=== PATIENT | female | born 1940 | race American Indian/Alaskan Native ===

== ENCOUNTER 2016-10-22 11:35 | Inpatient (IN) | payer MEDICARE ==
[2016-10-22 11:35] VITALS: BMI 24.7
[2016-10-22] MEDS ORDERED: Morphine 4 MG/ML VIAL ONE (12:44)
--- NOTE | 2016-10-22 12:46 | C.PDOC ---
History Of Present Illness The patient, a 75 y/o female whose PMHx includes Parkinson's Disease, presents to the ED for evaluation of right hip and right lower back pain after she sustained a fall prior to arrival. Patient denies LOC, head injury, neck pain, upper/lower extremity numbness/weakness. Time Seen by Provider: 10/22/16 12:14 Chief Complaint (Nursing): Lower Extremity Problem/Injury History Per: Patient History/Exam Limitations: no limitations Onset/Duration Of Symptoms: Hrs Current Symptoms Are (Timing): Still Present Additional History Per: Patient - Hip Description Of Injury: Fell Past Medical History Reviewed: Historical Data, Nursing Documentation, Vital Signs Vital Signs: Last Vital Signs Temp 99.3 F 10/22/16 18:24 Pulse 140 H 10/22/16 18:24 Resp 20 10/22/16 18:24 BP 167/75 H 10/22/16 18:24 Pulse Ox 96 10/22/16 18:24 - Medical History PMH: Parkinson's Disease (beginning stage) Surgical History: No Surg Hx - [facility] Procedures DESTRUCT-KNEE LESION NEC (09/21/02) EXCIS KNEE SEMILUN CARTL (09/21/02) IMMOBILIZ/WOUND ATTN NEC (09/21/13) KNEE SYNOVECTOMY (09/21/02) MEASURE OF CARDIAC SAMPL & PRESSURE, L HEART, PERC APPROACH (09/14/15) PLAIN RADIOGRAPHY OF LEFT HEART USING LOW OSMOLAR CONTRAST (09/14/15) PLAIN RADIOGRAPHY OF MULT COR ART USING L OSM CONTRAST (09/14/15) Family History: States: Unknown Family Hx - Social History Hx Tobacco Use: No Hx Alcohol Use: No Hx Substance Use: No Review Of Systems Except As Marked, All Systems Reviewed And Found Negative. Musculoskeletal: Positive for: Back Pain (right, lower ), Other (+right hip pain ). Negative for: Neck Pain Neurological: Negative for: Weakness, Numbness, Other (no head injury, no LOC ) Physical Exam - Physical Exam Appears: Non-toxic, No Acute Distress Skin: Normal Color, Warm, Dry Head: Atraumatic, Normacephalic, No Tenderness Eye(s): bilateral: Normal Inspection, EOMI Oral Mucosa: Moist Neck: Normal ROM, Supple Chest: Symmetrical, No Deformity, No Tenderness Cardiovascular: Rhythm Regular, No Murmur Respiratory: Normal Breath Sounds, No Rales, No Rhonchi, No Wheezing Back: Other (+tenderness to right lower back on palpation ) Extremity: Tenderness (right hip ), No Calf Tenderness, Capillary Refill (less than 2 seconds), No Deformity Pulses: Left Dorsalis Pedis: Normal, Right Dorsalis Pedis: Normal Neurological/Psych: Oriented x3, Normal Speech, Normal Cognition Gait: Steady ED Course And Treatment - Laboratory Results Result Diagrams: 10/22/16 12:55 10/22/16 12:55 Lab Interpretation: Normal O2 Sat by Pulse Oximetry: 96 (on RA) Pulse Ox Interpretation: Normal - Other Rad CXR X-Ray: Interpreted by Me, Viewed By Me, Read By Radiologist Interpretation: Accession No. : [id number]. Patient Name / ID : PLACIDO BLAIR / [id number]. Exam Date : 10/22/2016 12:49:38 ( Approved ). Study Comment : Sex / Age : F / 75Y. Creator : Mayito Yu. Dictator : Mayito Yu. Silver Wrapper : Still Operator : Mayito Yu. Approver2 : Report Date : 10/22/2016 14:31:09. My Comment : . PROCEDURE: CHEST RADIOGRAPH, 1 VIEW. HISTORY: pain. COMPARISON: Comparison is made to the previous study dated 06/23/2016. FINDINGS: LUNGS: No evidence of new infiltrate or consolidation in the lungs. PLEURA: No pneumothorax or pleural fluid seen. CARDIOVASCULAR: The cardiac silhouette is enlarged. OSSEOUS STRUCTURES: No significant abnormalities. VISUALIZED UPPER ABDOMEN: Normal. OTHER FINDINGS: None. IMPRESSION: No evidence of acute pulmonary disease. Cardiomegaly. XR Lumbar Spine X-Ray: Interpreted by Me, Viewed By Me, Read By Radiologist Interpretation: Accession No. : [id number]. Patient Name / ID : PLACIDO BLAIR / [id number]. Exam Date : 10/22/2016 12:49:04 ( Approved ). Study Comment : Sex / Age : F / 75Y. Creator : Mayito Yu. Dictator : Mayito Yu. Silver Wrapper : Still Operator : Mayito Yu. Approver2 : Report Date : 10/22/2016 15:04:12. My Comment : . PROCEDURE: Radiographs of the Lumbar Spine. HISTORY: pain. Status post fall. COMPARISON: No prior. FINDINGS: BONES: Diffuse osteopenia seen. Patient status post prior internal fixation at the lower lumbar spine at L5-S1. No evidence of acute fracture. DISC SPACES: Degenerative changes and multilevel degenerative disc changes are seen. There is narrowing of the disc is space at L4-L5 and L5-S1. OTHER FINDINGS: None. IMPRESSION: No definite evidence of acute fracture. Status post internal fixation at the lower lumbar spine. Suspicious for anterior spondylolisthesis of L5 relative to S1. Diffuse osteopenia. Moderate degenerative changes. XR Hip/Pelvis X-Ray: Interpreted by Me, Viewed By Me, Read By Radiologist Interpretation: Accession No. : [id number]. Patient Name / ID : PLACIDO BLAIR / [id number]. Exam Date : 10/22/2016 12:49:51 ( Approved ). Study Comment : Sex / Age : F / 75Y. Creator : Mayito Yu. Dictator : Mayito Yu. Silver Wrapper : Still Operator : Mayito Yu. Approver2 : Report Date : 10/22/2016 15:01:39. My Comment : . PROCEDURE: Left Hip X-ray Radiographs. HISTORY: Status post fall. COMPARISON: None. FINDINGS: BONES : There is acute fracture at the anterior left pubic ramus. No evidence of fracture or dislocation at the hips bilaterally. JOINTS: Normal. SOFT TISSUES : Normal. OTHER FINDINGS: Status post internal fixation at the lower lumbar spine. IMPRESSION: Suspicious for acute fracture at the left anterior pubic ramus. . CT Lower Extremity X-Ray: Interpreted by Me, Viewed By Me, Read By Radiologist Interpretation: Accession No. : [id number]. Patient Name / ID : PLACIDO BLAIR / [id number]. Exam Date : 10/22/2016 14:45:51 ( Approved ). Study Comment : Sex / Age : F / 75Y. Creator : Mayito Yu. Dictator : Mayito Yu. Silver Wrapper : Still Operator : Mayito Yu. Approver2 : Report Date : 10/22/2016 15:56:59. My Comment : . PROCEDURE: CT Pelvis without contrast. HISTORY: right hip/pelvis pain. COMPARISON: Comparison is made to the previous x-ray. TECHNIQUE: Contiguous axial images of the pelvis . No intravenous or oral contrast given. Coronal and sagittal reformats generated. Radiation dose: Total exam DLP = 394.67 mGy-cm. FINDINGS: BLADDER: Mildly distended bladder demonstrate mild wall thickening. REPRODUCTIVE ORGANS: Unremarkable. VISUALIZED BOWEL: No evidence of acute pathology. PERITONEUM: There is high attenuation fluid adjacent to the pubic symphysis extending to the left pelvis suspicious for hematoma measures 9 centimeter in the largest AP diameter and 2.5 centimeter in thickness. LYMPH NODES: Unremarkable. No enlarged lymph nodes. BONES: There is acute mildly displaced fracture at the left anterior pubic ramus. There is acute nondisplaced fracture at the right posterior rib pubic ramus PE. VASCULATURE: Unremarkable. OTHER FINDINGS: None. IMPRESSION: Acute mildly displaced fracture at the left anterior pubic ramus and acute nondisplaced fracture at the right posterior pubic ramus. High attenuation fluid at the left aspect of the pelvis and left posterior pubic ramus suspicious for hematoma. - CT Scan/US CT Lumbar Spine Other Rad Studies (CT/US): Interpreted By Me, Read By Radiologist, Radiology Report Reviewed CT/US Interpretation: Accession No. : [id number]. Patient Name / ID : PLACIDO BLAIR / [id number]. Exam Date : 10/22/2016 14:37:59 ( Approved ). Study Comment : Sex / Age : F / 75Y. Creator : Mayito Yu. Dictator : Mayito Yu. Silver Wrapper : Still Operator : Mayito Yu. Approver2 : Report Date : 10/22/2016 15:46:13. My Comment : . PROCEDURE: CT Lumbar Spine without contrast. HISTORY: back painstatus post fall. COMPARISON: None. TECHNIQUE: Axial computed tomography images were obtained of the lumbar spine without the use of intravenous contrast. Coronal and sagittal reformatted images were created and reviewed. Radiation dose: Total exam DLP = 1113.76 mGy -cm. FINDINGS: VERTEBRAE: There is moderate anterior spondylolisthesis of L5 relative to S1. Mild compression deformity of the L5 is noted likely old. The patient is status post posterior internal fixation and fusion of the L4-L5 and L5-S1 by bilateral pedicle screws. No evidence of acute pathology at L1, L2 and L3. DISCS/SPINAL CANAL/NEURAL FORAMINA: L1-2: Unremarkable. L2-3: Osteophyte disc bulging complex at L2-L3 associated with posterior ligament and facet joint hypertrophy which resulting in mild to moderate spinal and mild bilateral neural foraminal narrowing. L3-4: Limited assessment due to large streak artifact from the hardware. L4-5: Limited assessment due to large streak artifact from the hardware. L5-S1: Limited assessment due to large streak artifact from the hardware. PARASPINAL SOFT TISSUES: There are cystic low-attenuation lesion at the upper pole of the right kidney. No evidence of hydronephrosis. OTHER FINDINGS: None. IMPRESSION: Status post internal fixation/ fusion at L4-L5 and L5-S1. Limited assessment of the lower lumbar spine vertebrae due to large streak artifact from the hardware. Moderate grade 2 anterior spondylolisthesis of L5 relative to S1. No CT evidence of acute fracture at the lumbar spine. Acute slightly displaced fracture at the left anterior pubic ramus. Adjacent high attenuation fluid collection seen at the left pelvis may represents hematoma. . Progress Note: labs, CXR, Right Hip XR, LS Spine AP/LAT XR ordered and reviewed. Patient received Morphine IV. Treated with additional Dilaudid. Case discussed with Dr Melanie Denton and agrees to admit Reassessment Condition: Improved - Physician Consult Information Physician Contacted: Antony Denton Outcome Of Conversation: admit Medical Decision Making Medical Decision Making: Call placed to Dr Cagle information technology administrator for orthopedics Disposition Discussed With Dr.: Antony Denton Doctor Will See Patient In The: Hospital - Disposition Disposition: HOSPITALIZED Disposition Time: 17:00 Condition: STABLE - POA Present On Arrival: None - Clinical Impression Clinical Impression: Pelvic fracture - PA / INTERVENTION MANAGER / Resident Statement MD/DO has reviewed & agrees with the documentation as recorded. - Scribe Statement The provider has reviewed the documentation as recorded by the Scribe (Aury Denton) All medical record entries made by the Scribe were at my direction and personally dictated by me. I have reviewed the chart and agree that the record accurately reflects my personal performance of the history, physical exam, medical decision making, and the department course for this patient. I have also personally directed, reviewed, and agree with the discharge instructions and disposition. Decision To Admit - Pt Status Changed To: Hospital Disposition Of: Inpatient - Admit Certification Admit to Inpatient:: After my assessment, the patient will require hospitalization for at least two midnights. This is because of the severity of symptoms shown, intensity of services needed, and/or the medical risk in this patient being treated as an outpatient. - InPatient: Physician Admission Certification: I certify that this patient requires 2 or more midnights of care for the following reason:: Pelvic Fracture. Unable to ambulate - . Bed Request Type: Regular Admitting Physician: Antony Denton Patient Diagnosis: Pelvic fracture
[2016-10-22 13:04] LABS: BASO % 0.3 % (0.0-2.0); EOS % 0.1 % (0.0-4.0); HEMATOCRIT 35.1 % (34.0-47.0); LYMPH # 1.3 K/uL (1.0-4.3); LYMPH % 15.8 % (20.0-40.0); MEAN CELL VOLUME 87.5 fL (81.0-99.0); MEAN CORPUSCULAR HEMOGLOBIN 27.8 pg (27.0-31.0); MEAN CORPUSCULAR HGB CONC 31.8 g/dL (33.0-37.0); MEAN PLATELET VOLUME 8.3 fL (7.2-11.7); MONO # 0.4 K/uL (0.0-0.8); MONO % 4.2 % (0.0-10.0); RED CELL DISTRIBUTION WIDTH 13.3 % (11.5-14.5)
[2016-10-22 13:11] LABS: WHITE BLOOD COUNT 8.5 K/uL (4.8-10.8)
[2016-10-22 13:12] LABS: CHLORIDE 105 mmol/L (98-107); SODIUM 142 mmol/L (132-148)
[2016-10-22 13:13] LABS: POTASSIUM 4.3 mmol/L (3.6-5.2)
[2016-10-22 13:15] LABS: ALB/GLOB RATIO 1.1 (1.0-2.1); ALKALINE PHOSPHATASE 82 U/L (38-126); ALT/SGPT 20 U/L (9-52); AST/SGOT 42 U/L (14-36); BILIRUBIN,TOTAL 0.7 mg/dL (0.2-1.3); BLOOD UREA NITROGEN 10 mg/dL (7-17); CARBON DIOXIDE 26 mmol/L (22-30); GFR AFRICAN-AMERICAN > 60; GLUCOSE,RANDOM 89 mg/dL (65-105)
[2016-10-22 13:16] LABS: CALCIUM 9.1 mg/dl (8.6-10.4)
[2016-10-22 13:18] LABS: INR 1.3
[2016-10-22] MEDS ORDERED: HYDROmorphone 1 mg/ml ISec IVP STA (13:59)
[2016-10-22] MEDS ORDERED: HYDROmorphone 1 mg/ml ISec ONE (14:06)
[2016-10-22] MEDS ORDERED: Sodium Chloride 0.9% 1,000 ML IV ONE (14:16)
--- NOTE | 2016-10-22 14:32 | RAD ---
PROCEDURE: CHEST RADIOGRAPH, 1 VIEW HISTORY: pain COMPARISON: Comparison is made to the previous study dated 06/23/2016 FINDINGS: LUNGS: No evidence of new infiltrate or consolidation in the lungs. PLEURA: No pneumothorax or pleural fluid seen. CARDIOVASCULAR: The cardiac silhouette is enlarged. OSSEOUS STRUCTURES: No significant abnormalities. VISUALIZED UPPER ABDOMEN: Normal. OTHER FINDINGS: None. IMPRESSION: No evidence of acute pulmonary disease. Cardiomegaly.
--- NOTE | 2016-10-22 15:03 | RAD ---
PROCEDURE: Left Hip X-ray Radiographs. HISTORY: Status post fall COMPARISON: None. FINDINGS: BONES: There is acute fracture at the anterior left pubic ramus. No evidence of fracture or dislocation at the hips bilaterally. JOINTS: Normal. SOFT TISSUES: Normal. OTHER FINDINGS: Status post internal fixation at the lower lumbar spine. IMPRESSION: Suspicious for acute fracture at the left anterior pubic ramus. .
--- NOTE | 2016-10-22 15:05 | RAD ---
PROCEDURE: Radiographs of the Lumbar Spine. HISTORY: pain Status post fall COMPARISON: No prior. FINDINGS: BONES: Diffuse osteopenia seen. Patient status post prior internal fixation at the lower lumbar spine at L5-S1. No evidence of acute fracture. DISC SPACES: Degenerative changes and multilevel degenerative disc changes are seen. There is narrowing of the disc is space at L4-L5 and L5-S1. OTHER FINDINGS: None. IMPRESSION: No definite evidence of acute fracture. Status post internal fixation at the lower lumbar spine. Suspicious for anterior spondylolisthesis of L5 relative to S1. Diffuse osteopenia. Moderate degenerative changes.
--- NOTE | 2016-10-22 15:47 | CT ---
PROCEDURE: CT Lumbar Spine without contrast HISTORY: back painstatus post fall COMPARISON: None. TECHNIQUE: Axial computed tomography images were obtained of the lumbar spine without the use of intravenous contrast. Coronal and sagittal reformatted images were created and reviewed. Radiation dose: Total exam DLP = 1113.76 mGy-cm. FINDINGS: VERTEBRAE: There is moderate anterior spondylolisthesis of L5 relative to S1. Mild compression deformity of the L5 is noted likely old. The patient is status post posterior internal fixation and fusion of the L4-L5 and L5-S1 by bilateral pedicle screws. No evidence of acute pathology at L1, L2 and L3. DISCS/SPINAL CANAL/NEURAL FORAMINA: L1-2: Unremarkable. L2-3: Osteophyte disc bulging complex at L2-L3 associated with posterior ligament and facet joint hypertrophy which resulting in mild to moderate spinal and mild bilateral neural foraminal narrowing. L3-4: Limited assessment due to large streak artifact from the hardware L4-5: Limited assessment due to large streak artifact from the hardware L5-S1: Limited assessment due to large streak artifact from the hardware PARASPINAL SOFT TISSUES: There are cystic low-attenuation lesion at the upper pole of the right kidney. No evidence of hydronephrosis. OTHER FINDINGS: None. IMPRESSION: Status post internal fixation/ fusion at L4-L5 and L5-S1. Limited assessment of the lower lumbar spine vertebrae due to large streak artifact from the hardware. Moderate grade 2 anterior spondylolisthesis of L5 relative to S1. No CT evidence of acute fracture at the lumbar spine. Acute slightly displaced fracture at the left anterior pubic ramus. Adjacent high attenuation fluid collection seen at the left pelvis may represents hematoma. .
--- NOTE | 2016-10-22 15:58 | CT ---
PROCEDURE: CT Pelvis without contrast HISTORY: right hip/pelvis pain COMPARISON: Comparison is made to the previous x-ray. TECHNIQUE: Contiguous axial images of the pelvis . No intravenous or oral contrast given. Coronal and sagittal reformats generated. Radiation dose: Total exam DLP = 394.67 mGy-cm. FINDINGS: BLADDER: Mildly distended bladder demonstrate mild wall thickening. REPRODUCTIVE ORGANS: Unremarkable. VISUALIZED BOWEL: No evidence of acute pathology. PERITONEUM: There is high attenuation fluid adjacent to the pubic symphysis extending to the left pelvis suspicious for hematoma measures 9 centimeter in the largest AP diameter and 2.5 centimeter in thickness. LYMPH NODES: Unremarkable. No enlarged lymph nodes. BONES: There is acute mildly displaced fracture at the left anterior pubic ramus. There is acute nondisplaced fracture at the right posterior rib pubic ramus PE VASCULATURE: Unremarkable. OTHER FINDINGS: None. IMPRESSION: Acute mildly displaced fracture at the left anterior pubic ramus and acute nondisplaced fracture at the right posterior pubic ramus. High attenuation fluid at the left aspect of the pelvis and left posterior pubic ramus suspicious for hematoma.
--- NOTE | 2016-10-22 18:21 | CP.PCM.CON ---
Past Patient History - Tetanus Immunizations Tetanus Immunization: Unknown - Past Social History Smoking Status: Never Smoked - CARDIAC Hx Cardiac Disorders: No - PULMONARY Hx Respiratory Disorders: No - NEUROLOGICAL Hx Parkinson's Disease: Yes (beginning stage) - HEENT Hx HEENT Problems: No - RENAL Hx Chronic Kidney Disease: No - ENDOCRINE/METABOLIC Hx Endocrine Disorders: No - HEMATOLOGICAL/ONCOLOGICAL Hx Blood Disorders: No - INTEGUMENTARY Hx Dermatological Problems: No - MUSCULOSKELETAL/RHEUMATOLOGICAL Hx Musculoskeletal Disorders: Yes (BACK SURGERY) - GASTROINTESTINAL Hx Gastrointestinal Disorders: No - GENITOURINARY/GYNECOLOGICAL Hx Genitourinary Disorders: Yes Other/Comment: 2 CEASEREAN - PSYCHIATRIC Hx Substance Use: No - SURGICAL HISTORY Other/Comment: 2 C/S ,BACK SX Meds Allergies/Adverse Reactions: Allergies Allergy/AdvReac Type Severity Reaction Status Date / Time soap [From Betadine] Allergy Intermediate RASH Verified 10/22/16 11:47 [id number] inhibitor Allergy SWELLING Verified 10/22/16 11:47 [From Glassia] povidone-iodine Allergy RASH Verified 10/22/16 11:47 - Medications Medications: Current Medications Morphine Sulfate (Morphine) 2 mg IV Q6 PRN PRN Reason: pain Ondansetron HCl (Zofran Inj) 4 mg IVP Q4 PRN PRN Reason: Nausea/Vomiting Pantoprazole Sodium (Protonix Ec Tab) 40 mg PO DAILY LARA Physical Exam - Constitutional Appears: Well - Head Exam Head Exam: ATRAUMATIC, NORMAL INSPECTION, NORMOCEPHALIC - Eye Exam Eye Exam: EOMI, Normal appearance, PERRL Pupil Exam: NORMAL ACCOMODATION, PERRL - ENT Exam ENT Exam: Mucous Membranes Moist, Normal Exam - Neck Exam Neck exam: Positive for: Normal Inspection - Respiratory Exam Respiratory Exam: Decreased Breath Sounds - Cardiovascular Exam Cardiovascular Exam: REGULAR RHYTHM, +S1, +S2 - GI/Abdominal Exam GI & Abdominal Exam: Diminished Bowel Sounds, Soft - Rectal Exam Rectal Exam: Deferred Results - Vital Signs Recent Vital Signs: Last Vital Signs Temp 98.9 F 10/22/16 17:18 Pulse 120 H 10/22/16 17:18 Resp 18 10/22/16 17:18 BP 161/87 H 10/22/16 17:18 Pulse Ox 95 10/22/16 17:18 - Labs Result Diagrams: 10/22/16 12:55 10/22/16 12:55
[2016-10-22 21:08] LABS: RBC URINE 3 /hpf (0-3); URINE BILIRUBIN NEGATIVE (NEGATIVE); URINE BLOOD NEGATIVE (NEGATIVE); URINE GLUCOSE (UA) NORMAL (Normal); URINE KETONE TRACE mg/dL (NEGATIVE); URINE LEUKOCYTE ESTERASE TRACE Leu/uL (Negative); URINE PROTEIN NEGATIVE (NEGATIVE); URINE UROBILINOGEN NORMAL mg/dL (0.2-1.0); WBC URINE 8 /hpf (0-5)
[2016-10-22 21:16] LABS: URINE COLOR YELLOW (YELLOW)
--- NOTE | 2016-10-22 21:30 | CP.PCM.HP ---
Past Patient History - Tetanus Immunizations Tetanus Immunization: Unknown - Past Medical History & Family History Past Medical History?: Yes - Past Social History Smoking Status: Never Smoked - CARDIAC Hx Cardiac Disorders: No - PULMONARY Hx Respiratory Disorders: No - NEUROLOGICAL Hx Parkinson's Disease: Yes (beginning stage) - HEENT Hx HEENT Problems: No - RENAL Hx Chronic Kidney Disease: No - ENDOCRINE/METABOLIC Hx Endocrine Disorders: No - HEMATOLOGICAL/ONCOLOGICAL Hx Blood Disorders: No - INTEGUMENTARY Hx Dermatological Problems: No - MUSCULOSKELETAL/RHEUMATOLOGICAL Hx Musculoskeletal Disorders: Yes (BACK SURGERY) Hx Falls: Yes (fell in bath tube) - GASTROINTESTINAL Hx Gastrointestinal Disorders: No - GENITOURINARY/GYNECOLOGICAL Hx Genitourinary Disorders: Yes Other/Comment: 2 CEASEREAN - PSYCHIATRIC Hx Substance Use: No - SURGICAL HISTORY Hx Surgeries: Yes Other/Comment: 2 C/S ,BACK SX - ANESTHESIA Hx Anesthesia: Yes Hx Anesthesia Reactions: No Meds Allergies/Adverse Reactions: Allergies Allergy/AdvReac Type Severity Reaction Status Date / Time soap [From Betadine] Allergy Intermediate RASH Verified 10/22/16 11:47 [id number] inhibitor Allergy SWELLING Verified 10/22/16 11:47 [From Glassia] povidone-iodine Allergy RASH Verified 10/22/16 11:47 Results - Vital Signs Recent Vital Signs: Last Vital Signs Temp 99.3 F 10/22/16 18:24 Pulse 140 H 10/22/16 18:24 Resp 20 10/22/16 18:24 BP 167/75 H 10/22/16 18:24 Pulse Ox 96 10/22/16 18:27 - Labs Result Diagrams: 10/22/16 12:55 10/22/16 12:55 Labs: Laboratory Results - last 24 hr 10/22/16 20:48 Urine Color Yellow Urine Clarity Clear Urine pH 5.0 Ur Specific [place] 1.018 Urine Protein Negative Urine Glucose (UA) Normal Urine Ketones Trace Urine Blood Negative Urine Nitrate Negative Urine Bilirubin Negative Urine Urobilinogen Normal Ur Leukocyte Esterase Trace Urine WBC (Auto) 8 H Urine RBC (Auto) 3 Ur Squamous Epith Cells 5
[2016-10-22] MEDS ORDERED: ENTACAPONE PO SCH (22:00)
[2016-10-22] MEDS ORDERED: LEVODOPA PO SCH (22:00)
[2016-10-22] MEDS ORDERED: CARBIDOPA PO SCH (22:00)
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
[2016-10-23] MEDS: Pantoprazole 40 mg EC Tab PO SCH (10:05)
[2016-10-23] MEDS: Enoxaparin 40 mg Syringe SC SCH (10:05)
--- NOTE | 2016-10-23 13:14 | CP.PCM.PN ---
Subjective - Date & Time of Evaluation Date of Evaluation: 10/23/16 Time of Evaluation: 01:40 - Subjective Subjective: clinically same Objective - Vital Signs/Intake and Output Vital Signs (last 24 hours): Temp Pulse Resp BP Pulse Ox 98.4 F 111 H 22 152/80 H 97 10/23/16 07:00 10/23/16 11:05 10/23/16 07:00 10/23/16 11:05 10/23/16 11:05 Intake and Output: 10/23/16 10/23/16 06:59 18:59 Intake Total 221 Balance 221 - Medications Medications: Current Medications Enoxaparin Sodium (Lovenox) 40 mg SC DAILY [facility] Last Admin: 10/23/16 10:05 Dose: 40 mg Home Med (Carbidopa/Levodopa/Entacapone [Szyqguawz-Aauiropr-Qezm 100 Mg]) 1 tab PO QID [facility] Morphine Sulfate (Morphine) 2 mg IV Q6 PRN PRN Reason: pain Last Admin: 10/23/16 06:39 Dose: 2 mg Ondansetron HCl (Zofran Inj) 4 mg IVP Q4 PRN PRN Reason: Nausea/Vomiting Last Admin: 10/22/16 19:37 Dose: 4 mg Pantoprazole Sodium (Protonix Ec Tab) 40 mg PO DAILY [facility] Last Admin: 10/23/16 10:05 Dose: 40 mg Trihexyphenidyl HCl (Artane) 2 mg PO DAILY [facility] Last Admin: 10/23/16 10:13 Dose: 2 mg - Labs Labs: PT 14.2 SECONDS (9.7-12.2) H 10/22/16 12:55 INR 1.3 10/22/16 12:55 - Constitutional Appears: Well - Head Exam Head Exam: ATRAUMATIC, NORMAL INSPECTION, NORMOCEPHALIC - Eye Exam Eye Exam: EOMI, Normal appearance, PERRL Pupil Exam: NORMAL ACCOMODATION, PERRL - ENT Exam ENT Exam: Mucous Membranes Moist, Normal Exam - Neck Exam Neck Exam: Full ROM, Normal Inspection. absent: Lymphadenopathy - Respiratory Exam Respiratory Exam: Decreased Breath Sounds - Cardiovascular Exam Cardiovascular Exam: REGULAR RHYTHM, +S1, +S2 - GI/Abdominal Exam GI & Abdominal Exam: Soft, Diminished Bowel Sounds - Rectal Exam Rectal Exam: Deferred
[2016-10-24] MEDS: Pantoprazole 40 mg EC Tab PO SCH (09:43)
[2016-10-24] MEDS: Enoxaparin 40 mg Syringe SC SCH (09:44)
--- NOTE | 2016-10-24 10:51 | CP.PCM.PN ---
Subjective - Date & Time of Evaluation Date of Evaluation: 10/24/16 Time of Evaluation: 01:00 - Subjective Subjective: clinically same Objective - Vital Signs/Intake and Output Vital Signs (last 24 hours): Temp Pulse Resp BP Pulse Ox 98.7 F 117 H 18 127/78 100 10/24/16 07:10 10/24/16 07:10 10/24/16 07:10 10/24/16 07:10 10/24/16 07:10 Intake and Output: 10/24/16 10/24/16 06:59 18:59 Intake Total 350 Balance 350 - Medications Medications: Current Medications Enoxaparin Sodium (Lovenox) 40 mg SC DAILY [facility] Last Admin: 10/24/16 09:44 Dose: 40 mg Home Med (Carbidopa/Levodopa/Entacapone [Bfqfwscmr-Pbfraitv-Rxil 100 Mg]) 1 tab PO QID [facility] Morphine Sulfate (Morphine) 2 mg IV Q6 PRN PRN Reason: pain Last Admin: 10/24/16 09:44 Dose: 2 mg Ondansetron HCl (Zofran Inj) 4 mg IVP Q4 PRN PRN Reason: Nausea/Vomiting Last Admin: 10/22/16 19:37 Dose: 4 mg Pantoprazole Sodium (Protonix Ec Tab) 40 mg PO DAILY [facility] Last Admin: 10/24/16 09:43 Dose: 40 mg Trihexyphenidyl HCl (Artane) 2 mg PO DAILY [facility] Last Admin: 10/24/16 08:48 Dose: 2 mg - Labs Labs: PT 14.2 SECONDS (9.7-12.2) H 10/22/16 12:55 INR 1.3 10/22/16 12:55 - Constitutional Appears: Well - Head Exam Head Exam: ATRAUMATIC, NORMAL INSPECTION, NORMOCEPHALIC - Eye Exam Eye Exam: EOMI, Normal appearance, PERRL Pupil Exam: NORMAL ACCOMODATION, PERRL - ENT Exam ENT Exam: Mucous Membranes Moist, Normal Exam - Neck Exam Neck Exam: Full ROM, Normal Inspection. absent: Lymphadenopathy - Respiratory Exam Respiratory Exam: Decreased Breath Sounds - Cardiovascular Exam Cardiovascular Exam: REGULAR RHYTHM, +S1, +S2 - GI/Abdominal Exam GI & Abdominal Exam: Soft, Diminished Bowel Sounds - Rectal Exam Rectal Exam: Deferred
--- NOTE | 2016-10-24 11:54 | CP.PCM.PN ---
Subjective - Date & Time of Evaluation Date of Evaluation: 10/24/16 Time of Evaluation: 11:00 - Subjective Subjective: Patient states she feels better today. Pain is a little better. Denies CP/SOB/ dizziness/palpitations. Denies nausea/vomiting/numbness/tingling. Still complaining of groin pain, no new complaints. Review of Systems - Review of Systems All systems: reviewed and no additional remarkable complaints except - EENT Eyes: UNREMARKABLE Nose/Mouth/Throat: UNREMARKABLE - Cardiovascular Cardiovascular: As Per HPI - Respiratory Respiratory: As Per HPI - Gastrointestinal Gastrointestinal: As Per HPI - Musculoskeletal Musculoskeletal: As Par HPI - Integumentary Integumentary: UNREMARKABLE - Neurological Neurological: As Per HPI - Hematologic/Lymphatic Hematologic: UNREMARKABLE Objective - Vital Signs/Intake and Output Vital Signs (last 24 hours): Temp Pulse Resp BP Pulse Ox 98.7 F 117 H 18 127/78 100 10/24/16 07:10 10/24/16 07:10 10/24/16 07:10 10/24/16 07:10 10/24/16 07:10 Intake and Output: 10/24/16 10/24/16 06:59 18:59 Intake Total 350 Balance 350 - Medications Medications: Current Medications Enoxaparin Sodium (Lovenox) 40 mg SC DAILY [facility] Last Admin: 10/24/16 09:44 Dose: 40 mg Home Med (Carbidopa/Levodopa/Entacapone [Fyazuxwhh-Pghmfhit-Wgbo 100 Mg]) 1 tab PO QID [facility] Morphine Sulfate (Morphine) 2 mg IV Q6 PRN PRN Reason: pain Last Admin: 10/24/16 09:44 Dose: 2 mg Ondansetron HCl (Zofran Inj) 4 mg IVP Q4 PRN PRN Reason: Nausea/Vomiting Last Admin: 10/22/16 19:37 Dose: 4 mg Pantoprazole Sodium (Protonix Ec Tab) 40 mg PO DAILY [facility] Last Admin: 10/24/16 09:43 Dose: 40 mg Trihexyphenidyl HCl (Artane) 2 mg PO DAILY [facility] Last Admin: 10/24/16 08:48 Dose: 2 mg - Labs Labs: PT 14.2 SECONDS (9.7-12.2) H 10/22/16 12:55 INR 1.3 10/22/16 12:55 - Constitutional Appears: Well, No Acute Distress - Head Exam Head Exam: ATRAUMATIC, NORMAL INSPECTION - Respiratory Exam Respiratory Exam: NORMAL BREATHING PATTERN - Cardiovascular Exam Additional comments: BLE +DP/PTpulses calves soft NT neg homans - Extremities Exam Additional comments: Patient still complaining of pain with active hip/knee flexion bilaterally, but sig worse on left sensation intact BLE no swelling/discoloration/deformity to BLE PT at bedside to see patient. HR 140. VS reviewed, states HR is 68 on triage vitals, but has been tachycardic 100-140s since that time. No EKG on admission, last EKG 06/23/2016 which was sinus rhythm first degree AV block rate of 71. 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 Marques in [place], and had an EKG at that time. She says he considered a holter monitor for her, but then decided against it. No other work up at that time. She denies ever being told her heart rate is high. Office of Dr. Marques called, requested recent EKG. Office states Dr. Marques has chart at this time, and she will have doctor return call when he gets to office today. EKG ordered now, generated reading is second degree AV block Mobitz I rate [address] Melanie Denton - Neurological Exam Neurological Exam: Alert, Awake, Oriented x3 Neuro motor strength exam: Left Lower Extremity: 5 (DF/PF, toes flex/ext), Right Lower Extremity: 5 Assessment and Plan (1) Fracture of left superior pubic ramus Assessment & Plan: pain controlled PT/OT PT today deferred due to HR >140 EKG ordered, one reading on admission of HR 68, LM for Dr. Melanie Denton CBC/chem ordered, monitor h/h due to pelvic fracture VTE proph on lovenox orthopedically stable for d/c to rehab will defer any cardiac issues to attg Dr. Denton d/w Dr. Cagle, agrees with ortho plan Status: Acute (2) Fracture of left inferior pubic ramus Assessment & Plan: see above Status: Acute
[2016-10-24] MEDS ORDERED: Bisacodyl 5mg EC Tab PO ONE (14:00)
[2016-10-24 14:26] LABS: HEMATOCRIT 31.3 % (34.0-47.0); MEAN CELL VOLUME 86.5 fL (81.0-99.0); MEAN CORPUSCULAR HEMOGLOBIN 27.5 pg (27.0-31.0); MEAN CORPUSCULAR HGB CONC 31.8 g/dL (33.0-37.0); MEAN PLATELET VOLUME 8.4 fL (7.2-11.7); RED CELL DISTRIBUTION WIDTH 13.4 % (11.5-14.5); WHITE BLOOD COUNT 6.7 K/uL (4.8-10.8)
[2016-10-24 14:41] LABS: CHLORIDE 101 mmol/L (98-107); POTASSIUM 3.9 mmol/L (3.6-5.2); SODIUM 136 mmol/L (132-148)
[2016-10-24 14:44] LABS: BLOOD UREA NITROGEN 8 mg/dL (7-17); CARBON DIOXIDE 24 mmol/L (22-30); GFR AFRICAN-AMERICAN > 60; GLUCOSE,RANDOM 131 mg/dL (65-105)
[2016-10-24 14:45] LABS: CALCIUM 8.1 mg/dl (8.6-10.4)
--- NOTE | 2016-10-24 15:35 | CP.PCM.CON ---
Past Patient History - Tetanus Immunizations Tetanus Immunization: Unknown - Past Medical History & Family History Past Medical History?: Yes Past Family History: Reviewed and not pertinent - Past Social History Smoking Status: Never Smoked - CARDIAC Hx Cardiac Disorders: No - PULMONARY Hx Respiratory Disorders: No - NEUROLOGICAL Hx Parkinson's Disease: Yes (beginning stage) - HEENT Hx HEENT Problems: No - RENAL Hx Chronic Kidney Disease: No - ENDOCRINE/METABOLIC Hx Endocrine Disorders: No - HEMATOLOGICAL/ONCOLOGICAL Hx Blood Disorders: No - INTEGUMENTARY Hx Dermatological Problems: No - MUSCULOSKELETAL/RHEUMATOLOGICAL Hx Musculoskeletal Disorders: Yes (BACK SURGERY) Hx Falls: Yes (fell in bath tube) - GASTROINTESTINAL Hx Gastrointestinal Disorders: No - GENITOURINARY/GYNECOLOGICAL Hx Genitourinary Disorders: Yes Other/Comment: 2 CEASEREAN - PSYCHIATRIC Hx Substance Use: No - SURGICAL HISTORY Hx Surgeries: Yes Other/Comment: 2 C/S ,BACK SX - ANESTHESIA Hx Anesthesia: Yes Hx Anesthesia Reactions: No Meds Allergies/Adverse Reactions: Allergies Allergy/AdvReac Type Severity Reaction Status Date / Time soap [From Betadine] Allergy Intermediate RASH Verified 10/22/16 11:47 [id number]-2-rnrnrlivxy inhibitor Allergy SWELLING Verified 10/22/16 11:47 [From [place]] povidone-iodine Allergy RASH Verified 10/22/16 11:47 - Medications Medications: Current Medications Enoxaparin Sodium (Lovenox) 40 mg SC DAILY [facility] Last Admin: 10/24/16 09:44 Dose: 40 mg Home Med (Carbidopa/Levodopa/Entacapone [Gsnekofde-Eoedpmkn-Jyma 100 Mg]) 1 tab PO QID [facility] Morphine Sulfate (Morphine) 2 mg IV Q6 PRN PRN Reason: pain Last Admin: 10/24/16 09:44 Dose: 2 mg Ondansetron HCl (Zofran Inj) 4 mg IVP Q4 PRN PRN Reason: Nausea/Vomiting Last Admin: 10/22/16 19:37 Dose: 4 mg Pantoprazole Sodium (Protonix Ec Tab) 40 mg PO DAILY [facility] Last Admin: 10/24/16 09:43 Dose: 40 mg Trihexyphenidyl HCl (Artane) 2 mg PO DAILY [facility] Last Admin: 10/24/16 08:48 Dose: 2 mg Results - Vital Signs Recent Vital Signs: Last Vital Signs Temp 98.7 F 10/24/16 07:10 Pulse 93 H 10/24/16 14:17 Resp 18 10/24/16 07:10 BP 127/78 10/24/16 07:10 Pulse Ox 130 H 10/24/16 14:17 - Labs Result Diagrams: 10/24/16 14:17 10/24/16 14:17 Labs: Laboratory Results - last 24 hr 10/24/16 14:17 WBC 6.7 RBC 3.62 L Hgb 10.0 L Hct 31.3 L MCV 86.5 MCH 27.5 MCHC 31.8 L RDW 13.4 Plt Count 173 MPV 8.4 Sodium 136 Potassium 3.9 Chloride 101 Carbon Dioxide 24 Anion Gap 15 BUN 8 Creatinine 0.8 Est GFR ( Amer) > 60 Est GFR (Non-Af Amer) > 60 Random Glucose 131 H Calcium 8.1 L
--- NOTE | 2016-10-24 15:55 | CP.PCM.PN ---
Subjective - Date & Time of Evaluation Date of Evaluation: 10/24/16 Time of Evaluation: 15:54 - Subjective Subjective: PT SEEN BY DR SAAVEDRA TODAY FOR ATRIAL TACHYCARDIA, CARDIZEM 30 MH PO QID ORDERED PER DR SAAVEDRA. Objective - Vital Signs/Intake and Output Vital Signs (last 24 hours): Temp Pulse Resp BP Pulse Ox 98.7 F 93 H 18 127/78 130 H 10/24/16 07:10 10/24/16 14:17 10/24/16 07:10 10/24/16 07:10 10/24/16 14:17 Intake and Output: 10/24/16 10/24/16 06:59 18:59 Intake Total 350 Balance 350 - Medications Medications: Current Medications Diltiazem HCl (Cardizem) 30 mg PO QID [facility] Enoxaparin Sodium (Lovenox) 40 mg SC DAILY [facility] Last Admin: 10/24/16 09:44 Dose: 40 mg Home Med (Carbidopa/Levodopa/Entacapone [Jadvyvvzj-Anzqlpqk-Pvns 100 Mg]) 1 tab PO QID [facility] Morphine Sulfate (Morphine) 2 mg IV Q6 PRN PRN Reason: pain Last Admin: 10/24/16 09:44 Dose: 2 mg Ondansetron HCl (Zofran Inj) 4 mg IVP Q4 PRN PRN Reason: Nausea/Vomiting Last Admin: 10/22/16 19:37 Dose: 4 mg Pantoprazole Sodium (Protonix Ec Tab) 40 mg PO DAILY [facility] Last Admin: 10/24/16 09:43 Dose: 40 mg Trihexyphenidyl HCl (Artane) 2 mg PO DAILY [facility] Last Admin: 10/24/16 08:48 Dose: 2 mg - Labs Labs: 10/24/16 14:17 10/24/16 14:17 PT 14.2 SECONDS (9.7-12.2) H 10/22/16 12:55 INR 1.3 10/22/16 12:55
[2016-10-24] MEDS: STALEVO 100 PO SCH ×2 (18:16→22:15)
[2016-10-25] MEDS: Enoxaparin 40 mg Syringe SC SCH (10:23)
[2016-10-25] MEDS: Pantoprazole 40 mg EC Tab PO SCH (10:23)
[2016-10-25] MEDS: STALEVO 100 PO SCH ×4 (10:24→21:30)
--- NOTE | 2016-10-25 15:03 | CP.PCM.PN ---
Subjective - Date & Time of Evaluation Date of Evaluation: 10/25/16 Time of Evaluation: 11:40 - Subjective Subjective: clinically same Objective - Vital Signs/Intake and Output Vital Signs (last 24 hours): Temp Pulse Resp BP Pulse Ox 98.7 F 72 18 105/64 100 10/25/16 07:25 10/25/16 12:46 10/25/16 12:46 10/25/16 12:46 10/25/16 12:46 Intake and Output: 10/25/16 10/25/16 06:59 18:59 Intake Total 200 Balance 200 - Medications Medications: Current Medications Acetaminophen (Tylenol 325mg Tab) 650 mg PO Q6 PRN PRN Reason: Pain, Mild (1-3) Diltiazem HCl (Cardizem) 60 mg PO Q6H [facility] Last Admin: 10/25/16 12:45 Dose: 60 mg Enoxaparin Sodium (Lovenox) 40 mg SC DAILY [facility] Last Admin: 10/25/16 10:23 Dose: 40 mg Home Med (Patient's Own Medication) 1 tab PO QID [facility] Last Admin: 10/25/16 13:57 Dose: 1 tab Morphine Sulfate (Morphine) 2 mg IV Q6 PRN PRN Reason: pain Last Admin: 10/25/16 04:29 Dose: 2 mg Ondansetron HCl (Zofran Inj) 4 mg IVP Q4 PRN PRN Reason: Nausea/Vomiting Last Admin: 10/22/16 19:37 Dose: 4 mg Pantoprazole Sodium (Protonix Ec Tab) 40 mg PO DAILY [facility] Last Admin: 10/25/16 10:23 Dose: 40 mg Trihexyphenidyl HCl (Artane) 2 mg PO DAILY [facility] Last Admin: 10/25/16 10:24 Dose: 2 mg - Labs Labs: 10/24/16 14:17 10/24/16 14:17 PT 14.2 SECONDS (9.7-12.2) H 10/22/16 12:55 INR 1.3 10/22/16 12:55
--- NOTE | 2016-10-25 17:58 | CP.PCM.PN ---
Subjective - Date & Time of Evaluation Date of Evaluation: 10/25/16 Time of Evaluation: 07:15 Objective - Vital Signs/Intake and Output Vital Signs (last 24 hours): Temp Pulse Resp BP Pulse Ox 99.1 F 86 20 108/69 95 10/25/16 15:03 10/25/16 16:41 10/25/16 15:03 10/25/16 15:03 10/25/16 15:03 Intake and Output: 10/25/16 10/25/16 06:59 18:59 Intake Total 200 Balance 200 - Medications Medications: Current Medications Acetaminophen (Tylenol 325mg Tab) 650 mg PO Q6 PRN PRN Reason: Pain, Mild (1-3) Diltiazem HCl (Cardizem) 60 mg PO Q6H [facility] Last Admin: 10/25/16 12:45 Dose: 60 mg Enoxaparin Sodium (Lovenox) 70 mg SC Q12 [facility] Home Med (Patient's Own Medication) 1 tab PO QID [facility] Last Admin: 10/25/16 13:57 Dose: 1 tab Morphine Sulfate (Morphine) 2 mg IV Q6 PRN PRN Reason: pain Last Admin: 10/25/16 04:29 Dose: 2 mg Ondansetron HCl (Zofran Inj) 4 mg IVP Q4 PRN PRN Reason: Nausea/Vomiting Last Admin: 10/22/16 19:37 Dose: 4 mg Pantoprazole Sodium (Protonix Ec Tab) 40 mg PO DAILY [facility] Last Admin: 10/25/16 10:23 Dose: 40 mg Trihexyphenidyl HCl (Artane) 2 mg PO DAILY [facility] Last Admin: 10/25/16 10:24 Dose: 2 mg - Labs Labs: 10/24/16 14:17 10/24/16 14:17 PT 14.2 SECONDS (9.7-12.2) H 10/22/16 12:55 INR 1.3 10/22/16 12:55
[2016-10-25] MEDS: Enoxaparin 80 mg Syringe SC SCH (21:29)
--- NOTE | 2016-10-26 06:45 | CARD ---
APPROVED REPORT EKG Measurement Heart [id number] <Conclusion> Sinus tachycardia with 2nd degree AV block (Mobitz I) Nonspecific ST and T wave abnormality Abnormal ECG
[2016-10-26] MEDS: Pantoprazole 40 mg EC Tab PO SCH (11:00)
[2016-10-26] MEDS: STALEVO 100 PO SCH ×3 (11:00→17:27)
[2016-10-26] MEDS: Enoxaparin 80 mg Syringe SC SCH ×2 (11:56→21:19)
--- NOTE | 2016-10-26 17:31 | CP.PCM.PN ---
Subjective - Date & Time of Evaluation Date of Evaluation: 10/26/16 Time of Evaluation: 07:45 Objective - Vital Signs/Intake and Output Vital Signs (last 24 hours): Temp Pulse Resp BP Pulse Ox 98.6 F 67 20 98/60 L 97 10/26/16 16:18 10/26/16 16:18 10/26/16 16:18 10/26/16 16:18 10/26/16 16:18 Intake and Output: 10/26/16 10/26/16 06:59 18:59 Intake Total 740 Balance 740 - Medications Medications: Current Medications Acetaminophen (Tylenol 325mg Tab) 650 mg PO Q6 PRN PRN Reason: Pain, Mild (1-3) Last Admin: 10/25/16 21:32 Dose: 650 mg Diltiazem HCl (Cardizem) 60 mg PO Q6H [facility] Last Admin: 10/26/16 17:25 Dose: Not Given Enoxaparin Sodium (Lovenox) 70 mg SC Q12 [facility] Last Admin: 10/26/16 11:56 Dose: 70 mg Home Med (Patient's Own Medication) 1 tab PO QID [facility] Last Admin: 10/26/16 17:27 Dose: 1 tab Morphine Sulfate (Morphine) 2 mg IV Q6 PRN PRN Reason: pain Last Admin: 10/25/16 20:07 Dose: 2 mg Ondansetron HCl (Zofran Inj) 4 mg IVP Q4 PRN PRN Reason: Nausea/Vomiting Last Admin: 10/22/16 19:37 Dose: 4 mg Pantoprazole Sodium (Protonix Ec Tab) 40 mg PO DAILY [facility] Last Admin: 10/26/16 11:00 Dose: 40 mg Trihexyphenidyl HCl (Artane) 2 mg PO DAILY [facility] Last Admin: 10/26/16 11:00 Dose: 2 mg - Labs Labs: 10/24/16 14:17 10/24/16 14:17 PT 14.2 SECONDS (9.7-12.2) H 10/22/16 12:55 INR 1.3 10/22/16 12:55
--- NOTE | 2016-10-26 17:38 | CP.PCM.PN ---
Subjective - Date & Time of Evaluation Date of Evaluation: 10/26/16 Time of Evaluation: 10:45 - Subjective Subjective: clinically same Objective - Vital Signs/Intake and Output Vital Signs (last 24 hours): Temp Pulse Resp BP Pulse Ox 98.6 F 67 20 98/60 L 97 10/26/16 16:18 10/26/16 16:18 10/26/16 16:18 10/26/16 16:18 10/26/16 16:18 Intake and Output: 10/26/16 10/26/16 06:59 18:59 Intake Total 740 Balance 740 - Medications Medications: Current Medications Acetaminophen (Tylenol 325mg Tab) 650 mg PO Q6 PRN PRN Reason: Pain, Mild (1-3) Last Admin: 10/25/16 21:32 Dose: 650 mg Diltiazem HCl (Cardizem) 60 mg PO Q6H [facility] Last Admin: 10/26/16 17:25 Dose: Not Given Enoxaparin Sodium (Lovenox) 70 mg SC Q12 [facility] Last Admin: 10/26/16 11:56 Dose: 70 mg Home Med (Patient's Own Medication) 1 tab PO QID [facility] Last Admin: 10/26/16 17:27 Dose: 1 tab Morphine Sulfate (Morphine) 2 mg IV Q6 PRN PRN Reason: pain Last Admin: 10/25/16 20:07 Dose: 2 mg Ondansetron HCl (Zofran Inj) 4 mg IVP Q4 PRN PRN Reason: Nausea/Vomiting Last Admin: 10/22/16 19:37 Dose: 4 mg Pantoprazole Sodium (Protonix Ec Tab) 40 mg PO DAILY [facility] Last Admin: 10/26/16 11:00 Dose: 40 mg Trihexyphenidyl HCl (Artane) 2 mg PO DAILY [facility] Last Admin: 10/26/16 11:00 Dose: 2 mg - Labs Labs: 10/24/16 14:17 10/24/16 14:17 PT 14.2 SECONDS (9.7-12.2) H 10/22/16 12:55 INR 1.3 10/22/16 12:55 - Constitutional Appears: Well - Head Exam Head Exam: ATRAUMATIC, NORMAL INSPECTION, NORMOCEPHALIC - Eye Exam Eye Exam: EOMI, Normal appearance, PERRL Pupil Exam: NORMAL ACCOMODATION, PERRL - ENT Exam ENT Exam: Mucous Membranes Moist, Normal Exam - Neck Exam Neck Exam: Full ROM, Normal Inspection. absent: Lymphadenopathy - Respiratory Exam Respiratory Exam: Decreased Breath Sounds - Cardiovascular Exam Cardiovascular Exam: REGULAR RHYTHM, +S1, +S2 - GI/Abdominal Exam GI & Abdominal Exam: Soft, Diminished Bowel Sounds - Rectal Exam Rectal Exam: Deferred
--- NOTE | 2016-10-27 09:22 | CP.PCM.PN ---
Subjective - Date & Time of Evaluation Date of Evaluation: 10/27/16 Time of Evaluation: 08:10 - Subjective Subjective: Cardiology Note- Dr. Otero' service Patient was seen and examined at bedside. Patient reports no acute complaints at this time. No events overnight, per nursing. Patient expresses relief that her injury is nonsurgical. Patient understands and is okay with going to [facility] when arrangements have been made. Telemetry reviewed overnight. Objective - Vital Signs/Intake and Output Vital Signs (last 24 hours): Temp Pulse Resp BP Pulse Ox 98.2 F 68 18 117/65 96 10/27/16 07:27 10/27/16 07:27 10/27/16 07:27 10/27/16 07:27 10/27/16 07:27 Intake and Output: 10/27/16 10/27/16 06:59 18:59 Intake Total 600 Balance 600 - Medications Medications: Current Medications Acetaminophen (Tylenol 325mg Tab) 650 mg PO Q6 PRN PRN Reason: Pain, Mild (1-3) Last Admin: 10/27/16 03:02 Dose: 650 mg Diltiazem HCl (Cardizem) 60 mg PO Q6H [facility] Last Admin: 10/27/16 06:34 Dose: 60 mg Enoxaparin Sodium (Lovenox) 70 mg SC Q12 [facility] Last Admin: 10/26/16 21:19 Dose: 70 mg Home Med (Patient's Own Medication) 1 tab PO QID [facility] Last Admin: 10/26/16 17:27 Dose: 1 tab Ondansetron HCl (Zofran Inj) 4 mg IVP Q4 PRN PRN Reason: Nausea/Vomiting Last Admin: 10/22/16 19:37 Dose: 4 mg Pantoprazole Sodium (Protonix Ec Tab) 40 mg PO DAILY [facility] Last Admin: 10/26/16 11:00 Dose: 40 mg Trihexyphenidyl HCl (Artane) 2 mg PO DAILY [facility] Last Admin: 10/26/16 11:00 Dose: 2 mg - Labs Labs: 10/24/16 14:17 10/24/16 14:17 PT 14.2 SECONDS (9.7-12.2) H 10/22/16 12:55 INR 1.3 10/22/16 12:55 - Constitutional Appears: Non-toxic, No Acute Distress - Head Exam Head Exam: ATRAUMATIC, NORMAL INSPECTION, NORMOCEPHALIC - Eye Exam Pupil Exam: NORMAL ACCOMODATION - ENT Exam ENT Exam: Mucous Membranes Moist - Respiratory Exam Respiratory Exam: Clear to Ausculation Bilateral, NORMAL BREATHING PATTERN. absent: Prolonged Expiratory Phase, Rales, Rhonchi, Wheezes - Cardiovascular Exam Cardiovascular Exam: REGULAR RHYTHM, +S1, +S2 - GI/Abdominal Exam GI & Abdominal Exam: Soft, Normal Bowel Sounds. absent: Tenderness, Diminished Bowel Sounds, Hypoactive Bowel Sounds - Neurological Exam Neurological Exam: Alert, Awake, Oriented x3 - Psychiatric Exam Psychiatric exam: Normal Affect, Normal Mood - Skin Skin Exam: Dry, Intact, Normal Color, Warm Assessment and Plan (1) Tachycardia Assessment & Plan: EKG- 10/24/16- sinus tach with 2nd degree AV block Continue Cardizem CD 240mg PO Daily Telemetry reviewed. heart rate is sinus rhythm and rate controlled. Case and plan reviewed with Dr. Otero Status: Acute
[2016-10-27] MEDS: Enoxaparin 80 mg Syringe SC SCH (09:51)
[2016-10-27] MEDS: Pantoprazole 40 mg EC Tab PO SCH (09:51)
[2016-10-27] MEDS: STALEVO 100 PO SCH ×3 (09:52→17:53)
--- NOTE | 2016-10-27 10:31 | CP.PCM.PN ---
Subjective - Date & Time of Evaluation Date of Evaluation: 10/27/16 Time of Evaluation: 10:00 - Subjective Subjective: Patient with PT/OT, tolerating well. OOB and in chair. Denies CP/SOB/dizziness/ palp. Says pain is improving in groin. No new complaints. Review of Systems - Review of Systems All systems: reviewed and no additional remarkable complaints except - Constitutional Additional comments: denies fever/chills - Cardiovascular Cardiovascular: UNREMARKABLE - Respiratory Respiratory: UNREMARKABLE - Gastrointestinal Gastrointestinal: UNREMARKABLE - Genitourinary Genitourinary: UNREMARKABLE - Musculoskeletal Musculoskeletal: As Par HPI - Integumentary Integumentary: UNREMARKABLE - Neurological Neurological: UNREMARKABLE - Hematologic/Lymphatic Hematologic: UNREMARKABLE Objective - Vital Signs/Intake and Output Vital Signs (last 24 hours): Temp Pulse Resp BP Pulse Ox 98.2 F 68 18 117/65 96 10/27/16 07:27 10/27/16 07:27 10/27/16 07:27 10/27/16 07:27 10/27/16 07:27 Intake and Output: 10/27/16 10/27/16 06:59 18:59 Intake Total 600 Balance 600 - Medications Medications: Current Medications Acetaminophen (Tylenol 325mg Tab) 650 mg PO Q6 PRN PRN Reason: Pain, Mild (1-3) Last Admin: 10/27/16 03:02 Dose: 650 mg Diltiazem HCl (Cardizem) 60 mg PO Q6H [facility] Last Admin: 10/27/16 06:34 Dose: 60 mg Enoxaparin Sodium (Lovenox) 70 mg SC Q12 [facility] Last Admin: 10/27/16 09:51 Dose: 70 mg Home Med (Patient's Own Medication) 1 tab PO QID [facility] Last Admin: 10/27/16 09:52 Dose: 1 tab Ondansetron HCl (Zofran Inj) 4 mg IVP Q4 PRN PRN Reason: Nausea/Vomiting Last Admin: 10/22/16 19:37 Dose: 4 mg Pantoprazole Sodium (Protonix Ec Tab) 40 mg PO DAILY [facility] Last Admin: 10/27/16 09:51 Dose: 40 mg Trihexyphenidyl HCl (Artane) 2 mg PO DAILY [facility] Last Admin: 10/27/16 09:52 Dose: 2 mg - Labs Labs: 10/24/16 14:17 10/24/16 14:17 PT 14.2 SECONDS (9.7-12.2) H 10/22/16 12:55 INR 1.3 10/22/16 12:55 - Constitutional Appears: Well, No Acute Distress - Head Exam Head Exam: ATRAUMATIC, NORMAL INSPECTION - ENT Exam ENT Exam: Mucous Membranes Moist - Neck Exam Neck Exam: Full ROM, Normal Inspection - Respiratory Exam Respiratory Exam: NORMAL BREATHING PATTERN - Cardiovascular Exam Additional comments: +DP/PT pulses BLE calves soft NT neg homans - Extremities Exam Additional comments: Improving ROM of B hips and knees, still painful sensation intact BLE less tenderness to back - Neurological Exam Neurological Exam: Alert, Awake Neuro motor strength exam: Left Lower Extremity: 5 (ankles DF/PF, toes flex/ext) , Right Lower Extremity: 5 - Psychiatric Exam Psychiatric exam: Normal Affect, Normal Mood - Skin Skin Exam: Dry, Intact, Normal Color, Warm Assessment and Plan (1) Fracture of left superior pubic ramus Assessment & Plan: stable no ortho intervention indicated, non operative PT/OT protected WB LLE VTE proph ortho stable for d/c to rehab cardio f/u appreciated f/u Dr. Cagle or private ortho within 2 weeks, call for appointment d/w Dr. cagle, agrees with above Status: Acute (2) Fracture of left inferior pubic ramus Assessment & Plan: see above Status: Acute
[2016-10-27 12:01] VITALS: RESP 20
--- NOTE | 2016-10-27 14:58 | CP.PCM.PN ---
Subjective - Date & Time of Evaluation Date of Evaluation: 10/27/16 Time of Evaluation: 10:00 - Subjective Subjective: Dr. D[place], service: Patient seen and examined in room. Patient says her pain and mobility have improved since surgery. She is able to work with physical therapy and sit up in a chair. She does not complains of shortness of breath, chest pain, palpitations, or diarrhea. Objective - Vital Signs/Intake and Output Vital Signs (last 24 hours): Temp Pulse Resp BP Pulse Ox 98.2 F 112 H 20 112/66 98 10/27/16 07:27 10/27/16 12:41 10/27/16 12:00 10/27/16 12:00 10/27/16 12:41 Intake and Output: 10/27/16 10/27/16 06:59 18:59 Intake Total 600 450 Balance 600 450 - Medications Medications: Current Medications Acetaminophen (Tylenol 325mg Tab) 650 mg PO Q6 PRN PRN Reason: Pain, Mild (1-3) Last Admin: 10/27/16 03:02 Dose: 650 mg Diltiazem HCl (Cardizem Cd) 240 mg PO DAILY [facility] Diltiazem HCl (Cardizem) 60 mg PO Q6 [facility] Stop: 10/28/16 00:01 Last Admin: 10/27/16 14:21 Dose: Not Given Enoxaparin Sodium (Lovenox) 70 mg SC Q12 [facility] Last Admin: 10/27/16 09:51 Dose: 70 mg Home Med (Patient's Own Medication) 1 tab PO QID [facility] Last Admin: 10/27/16 14:21 Dose: 1 tab Ondansetron HCl (Zofran Inj) 4 mg IVP Q4 PRN PRN Reason: Nausea/Vomiting Last Admin: 10/22/16 19:37 Dose: 4 mg Pantoprazole Sodium (Protonix Ec Tab) 40 mg PO DAILY [facility] Last Admin: 10/27/16 09:51 Dose: 40 mg Trihexyphenidyl HCl (Artane) 2 mg PO DAILY [facility] Last Admin: 10/27/16 09:52 Dose: 2 mg - Labs Labs: 10/24/16 14:17 10/24/16 14:17 PT 14.2 SECONDS (9.7-12.2) H 10/22/16 12:55 INR 1.3 10/22/16 12:55 - Constitutional Appears: Non-toxic, No Acute Distress - Head Exam Head Exam: NORMAL INSPECTION - Eye Exam Eye Exam: Normal appearance Pupil Exam: NORMAL ACCOMODATION - Respiratory Exam Respiratory Exam: Clear to Ausculation Bilateral - Skin Skin Exam: Normal Color, Warm Assessment and Plan (1) Fracture of left inferior pubic ramus Assessment & Plan: Patient is to be discharged to rehab facility Status: Acute (2) Fracture of left superior pubic ramus Status: Acute
[2016-10-27 16:16] VITALS: TEMP 99.4
--- NOTE | 2016-10-27 17:30 | CP.PCM.PN ---
Subjective - Date & Time of Evaluation Date of Evaluation: 10/27/16 Time of Evaluation: 11:20 - Subjective Subjective: clinically same Objective - Vital Signs/Intake and Output Vital Signs (last 24 hours): Temp Pulse Resp BP Pulse Ox 99.4 F 69 20 132/72 94 L 10/27/16 15:12 10/27/16 15:12 10/27/16 15:12 10/27/16 15:12 10/27/16 15:12 Intake and Output: 10/27/16 10/27/16 06:59 18:59 Intake Total 600 450 Balance 600 450 - Medications Medications: Current Medications Acetaminophen (Tylenol 325mg Tab) 650 mg PO Q6 PRN PRN Reason: Pain, Mild (1-3) Last Admin: 10/27/16 03:02 Dose: 650 mg Diltiazem HCl (Cardizem Cd) 240 mg PO DAILY [facility] Diltiazem HCl (Cardizem) 60 mg PO Q6 [facility] Stop: 10/28/16 00:01 Last Admin: 10/27/16 14:21 Dose: Not Given Enoxaparin Sodium (Lovenox) 70 mg SC Q12 [facility] Last Admin: 10/27/16 09:51 Dose: 70 mg Home Med (Patient's Own Medication) 1 tab PO QID [facility] Last Admin: 10/27/16 14:21 Dose: 1 tab Ondansetron HCl (Zofran Inj) 4 mg IVP Q4 PRN PRN Reason: Nausea/Vomiting Last Admin: 10/22/16 19:37 Dose: 4 mg Pantoprazole Sodium (Protonix Ec Tab) 40 mg PO DAILY [facility] Last Admin: 10/27/16 09:51 Dose: 40 mg Trihexyphenidyl HCl (Artane) 2 mg PO DAILY [facility] Last Admin: 10/27/16 09:52 Dose: 2 mg - Labs Labs: 10/24/16 14:17 10/24/16 14:17 PT 14.2 SECONDS (9.7-12.2) H 10/22/16 12:55 INR 1.3 10/22/16 12:55 - Constitutional Appears: Well - Head Exam Head Exam: ATRAUMATIC, NORMAL INSPECTION, NORMOCEPHALIC - Eye Exam Eye Exam: EOMI, Normal appearance, PERRL Pupil Exam: NORMAL ACCOMODATION, PERRL - ENT Exam ENT Exam: Mucous Membranes Moist, Normal Exam - Neck Exam Neck Exam: Full ROM, Normal Inspection. absent: Lymphadenopathy - Respiratory Exam Respiratory Exam: Decreased Breath Sounds - Cardiovascular Exam Cardiovascular Exam: REGULAR RHYTHM, +S1, +S2 - GI/Abdominal Exam GI & Abdominal Exam: Soft, Diminished Bowel Sounds - Rectal Exam Rectal Exam: Deferred
[2016-10-27 17:52] VITALS: BP 134/78; PULSE 74; O2SAT 99
[2016-10-28] MEDS ORDERED: diltiaZEM 240 mg/24 Hours CD Cap PO SCH (10:00)
== END 2016-10-27 18:15 | DRG 536 ==
LOC: C.ER 11:35 → C.9E 16:41 → C.6T 17:06
PROVIDERS: ADMIT Internal Medicine Nephrology; ATTEND Internal Medicine Nephrology
DX: S32.512A Fracture of superior rim of left pubis, initial encounter for closed fracture (principal); S32.592A Other specified fracture of left pubis, initial encounter for closed fracture; G20 Parkinson's disease; I47.1 Supraventricular tachycardia; W18.2XXA Fall in (into) shower or empty bathtub, initial encounter; Y92.002 Bathroom of unspecified non-institutional (private) residence as the place of occurrence of the external cause